=== PATIENT | male | born 1985 | race Caucasian/White ===

== ENCOUNTER 2020-06-05 08:44 | Outpatient (CLI) | payer BC | END 2020-06-05 08:45 | disposition home or self-care (01) | LOC: CTENTCT 08:44 | PROVIDERS: ATTEND Otolaryngology Plastic Surgery within the Head & Neck | DX: J01.81 Other acute recurrent sinusitis (principal) | CPT/HCPCS: 70486 ==

== ENCOUNTER 2020-07-30 07:38 | Day surgery (SDC) | payer BC ==
[2020-07-29 09:50] VITALS: BMI 29.0
[2020-07-30] MEDS ORDERED: Fentanyl 100 MCG/2 ML VIAL ONE ×4 (08:01→10:05)
[2020-07-30] MEDS ORDERED: Midazolam HCl 2 mg/2 ml Vial ONE (08:01)
[2020-07-30] MEDS ORDERED: Bacitracin Zinc Ointment 30 gm TUBE ONE (08:04)
[2020-07-30] MEDS ORDERED: Lidocaine 1% w/Epinephrine 1:100K 20 ML VIAL ONE (08:04)
[2020-07-30] MEDS ORDERED: AFRIN NASAL MIST 15 ML BOT ONE ×2 (08:04→08:08)
[2020-07-30] MEDS ORDERED: Lidocaine 1% PF 5 ML VIAL ONE (09:33)
[2020-07-30] MEDS ORDERED: PROPOFOL 200 MG/20 ML VIAL ONE (09:33)
[2020-07-30] MEDS ORDERED: Dexamethasone 20 MG/5 ML VIAL ONE (09:33)
[2020-07-30] MEDS ORDERED: Ondansetron PF 4 MG/2 ML Vial ONE (09:33)
[2020-07-30] MEDS ORDERED: Hydrocodone-Acetamin 15 ML UDCUP ONE (10:50)
[2020-07-30] MEDS ORDERED: Morphine 2 MG/ML VIAL ONE (11:23)
--- NOTE | 2020-08-03 11:09 | OP ---
DATE OF PROCEDURE: 07/30/2020 PREOPERATIVE DIAGNOSES: 1. Chronic rhinosinusitis. 2. Nasal septal deviation. 3. Bilateral inferior turbinate hypertrophy. 4. Nasal obstruction. POSTOPERATIVE DIAGNOSES: 1. Chronic rhinosinusitis. 2. Nasal septal deviation. 3. Bilateral inferior turbinate hypertrophy. 4. Nasal obstruction. PROCEDURES PERFORMED: 1. Bilateral endoscopic sinus surgery, total ethmoidectomies. 2. Bilateral endoscopic sinus surgery, maxillary antrostomies. 3. Bilateral endoscopic sinus surgery, frontal sinusotomies. 4. Bilateral endoscopic sinus surgery, sphenoidotomies. 5. Nasoseptoplasty. 6. Bilateral inferior turbinate submucosal resection. 7. LandmarX intraoperative stereotactic-guided system. ESTIMATED BLOOD LOSS: 20 mL. COMPLICATIONS: None. ANESTHESIA: GETA. DESCRIPTION OF PROCEDURE: Patient was taken to the operating room and placed supine on the table. General endotracheal anesthesia was obtained by the anesthesia staff. Then 1% lidocaine with 1:100,000 epinephrine was injected into the nasal septum as well as the inferior turbinates. The patient was prepped and draped in standard surgical fashion. The Afrin pledgets were then removed. A Marianne incision was made on the left nasal septum. Submucoperichondrial dissection was performed bilaterally of the deviated portions of the septum, which included the maxillary crest and the crest deviation, as well as the mid portion of the septum. Cartilage and bony deviation was removed, leaving a generous caudal and dorsal strut. Any straight pieces of cartilage were then placed within the cartilage press, pressed, straightened, and then placed between the mucoperichondrial flaps, which were then closed using a 4-0 gut stitch. The inferior turbinates were then punctured with the submucosal Coblation machine, and 3 separate coblations were delivered to the anterior inferior portion of the inferior turbinates. Following this, the nasal cavity was irrigated. All debris was removed. An orogastric tube was placed. Gastric contents and Perkins splints were then placed in the nasal cavity and sutured with a 3-0 silk stitch. Following this, the DraftX image-guided system was setup, calibrated, and was noted to be within 1 mm of accuracy. Following this, all instruments used on the side of the nasal cavity under endoscopic guidance were used with the DraftX image-guided system. Following this, a [place] elevator was used to gently medialize the middle turbinates bilaterally and the uncinate process was identified bilaterally. The Ball-ended probe was then used to anteriorly fracture the uncinate process bilaterally. Following this, the uncinate process was removed bilaterally using the up-biting Blakesley forceps and the microdebrider. Following this, the natural maxillary sinus ostia was identified using a ball-ended probe and was then gently widened using a 40-degree microdebrider blade and straight Blakesley forceps bilaterally. Following this, the ethmoidal bulla was identified and was punctured on its medial and inferior aspect bilaterally with the 0-degree microdebrider and was removed using the microdebrider and up-biting Blakesley forceps bilaterally. Following this, the grand lamella was identified and was punctured into the posterior ethmoidal cells using the 0-degree microdebrider blade. Following this, the curved blade was kept in view as the posterior ethmoidal cells were opened from a posterior to anterior direction using the stereotactic guidance system . Following this, the anterior wall of the sphenoid sinus was identified using the stereotactic instruments and a sphenoidotomy was created bilaterally using the 0-degree microdebrider. The sphenoid ostia were then widened in a medial and inferior direction using the microdebrider bilaterally. Following this, 45-degree endoscope along with 40-degree microdebrider blade was used to open the frontal recess cells as well as identify the frontal sinus ostia and widen the frontal sinus ostia bilaterally. Following this, the nasal cavity was irrigated. NasoPore packing was placed within the middle meatus. Perkins splints were placed and secured. The patient tolerated the procedure well. Job ID: [id number]
== END 2020-07-30 13:20 | disposition home or self-care (01) ==
LOC: SDC 07:38
PROVIDERS: ATTEND Otolaryngology Plastic Surgery within the Head & Neck
PROC: 09BU8ZZ Excision of Right Ethmoid Sinus, Via Natural or Artificial Opening Endoscopic (ICD-10-PCS; principal; 2020-07-30)
PROC: 099R8ZZ Drainage of Left Maxillary Sinus, Via Natural or Artificial Opening Endoscopic (ICD-10-PCS; principal; 2020-07-30)
PROC: 099Q8ZZ Drainage of Right Maxillary Sinus, Via Natural or Artificial Opening Endoscopic (ICD-10-PCS; principal; 2020-07-30)
PROC: 09BL8ZZ Excision of Nasal Turbinate, Via Natural or Artificial Opening Endoscopic (ICD-10-PCS; principal; 2020-07-30)
PROC: 09BT8ZZ Excision of Left Frontal Sinus, Via Natural or Artificial Opening Endoscopic (ICD-10-PCS; principal; 2020-07-30)
PROC: 09CW8ZZ Extirpation of Matter from Right Sphenoid Sinus, Via Natural or Artificial Opening Endoscopic (ICD-10-PCS; principal; 2020-07-30)
PROC: 09BV8ZZ Excision of Left Ethmoid Sinus, Via Natural or Artificial Opening Endoscopic (ICD-10-PCS; principal; 2020-07-30)
PROC: 09CX8ZZ Extirpation of Matter from Left Sphenoid Sinus, Via Natural or Artificial Opening Endoscopic (ICD-10-PCS; principal; 2020-07-30)
PROC: 09BM8ZZ Excision of Nasal Septum, Via Natural or Artificial Opening Endoscopic (ICD-10-PCS; principal; 2020-07-30)
PROC: 09BS8ZZ Excision of Right Frontal Sinus, Via Natural or Artificial Opening Endoscopic (ICD-10-PCS; principal; 2020-07-30)
PROC: 8E09XBZ Computer Assisted Procedure of Head and Neck Region (ICD-10-PCS; principal; 2020-07-30)
DX: J32.9 Chronic sinusitis, unspecified (principal); J34.2 Deviated nasal septum; J34.3 Hypertrophy of nasal turbinates; J34.89 Other specified disorders of nose and nasal sinuses; J30.2 Other seasonal allergic rhinitis; Z79.899 Other long term (current) drug therapy; Z88.2 Allergy status to sulfonamides; Z87.891 Personal history of nicotine dependence
CPT/HCPCS: J2250; J2270; J3010